=== PATIENT | female | born 1960 | race Caucasian/White ===

== ENCOUNTER 2025-01-08 17:21 | Emergency (ER) | payer MEDICARE, MEDICAID, SELFPAY ==
[2025-01-08 17:24] VITALS: BMI 24.0
[2025-01-08 18:02] VITALS: BP 138/86; PULSE 101; RESP 16; TEMP 37.1; O2SAT 96
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
== END 2025-01-08 19:38 | disposition home or self-care (01) ==
PROVIDERS: Emergency Provider Emergency Medicine
DX: S80.01XA Contusion of right knee, initial encounter (principal); W50.1XXA Accidental kick by another person, initial encounter
CPT/HCPCS: 73562; 99283